=== PATIENT | male | born 1980 | race American Indian/Alaskan Native ===

== ENCOUNTER 2019-05-28 17:51 | Emergency (ER) | payer SELFPAY ==
[2019-05-28 22:27] VITALS: BP 103/70
[2019-05-28 23:01] LABS: Basophils % (Auto) 0.7 % (0.0-1.8); Hematocrit 46.6 % (35.5-45.6); Hemoglobin 15.7 gm/dl (11.8-15.2); Lymphocytes # (Auto) 0.6 K/mm3 (1.2-5.4); Mean Corpuscular HGB Conc 34 % (32-34); Mean Corpuscular Volume 88 fl (84-94); Monocytes # (Auto) 0.8 K/mm3 (0.0-0.8); Monocytes % (Auto) 14.1 % (0.0-7.3); Platelet Count 202 K/mm3 (140-440); Red Blood Count 5.29 M/mm3 (3.65-5.03); Red Cell Distribution Width 13.2 % (13.2-15.2)
[2019-05-28 23:25] LABS: Alanine Aminotransferase 20 units/L (7-56); Albumin 4.8 g/dL (3.9-5); BUN/Creatinine Ratio 8; Blood Urea Nitrogen 11 mg/dL (9-20); Calcium 9.7 mg/dL (8.4-10.2); Hemolysis Index 10
[2019-05-28] MEDS: chlorproMAZINE 25 MG in SODIUM CHLORIDE 0.9% 50 ML IV ONE (23:56)
[2019-05-28] MEDS: ALUM-MAG HYDROXIDE-SIMETHICONE 200-200-20MG/5ML ORAL LIQD 30 ML PO ONE (23:56)
[2019-05-28] MEDS: LIDOCAINE VISCOUS 2% 15 ML ORAL LIQD PO ONE (23:56)
[2019-05-28] MEDS: FAMOTIDINE 20 MG/2 ML INJ IV ONE (23:56)
--- NOTE | 2019-05-29 00:48 | XRay Report ---
CHEST 2 VIEWS, 05/29/2019 12:17 AM INDICATION: Cough COMPARISON: None FINDINGS: Support devices: None Heart: The heart appears normal in size. Lungs/pleura: The lungs are well expanded and appear clear of focal airspace disease or significant p leural effusion. Additional findings: Evaluation of bony structures demonstrates no acute abnormality. IMPRESSION: 1. No evidence of acute cardiopulmonary process. Signer Name: Jackie Torres MD Signed: 05/29/2019 12:43 AM Workstation Name: [email or web address]
--- NOTE | 2019-05-29 02:22 | Emergency Department Report ---
ED General Adult HPI - General Chief complaint: Nausea/Vomiting/Diarrhea Stated complaint: HICUPPS Source: patient Mode of arrival: Ambulatory Limitations: No Limitations - History of Present Illness Initial comments: Patient is a 39-year-old -[place] male with no past medical history presents to the ED with complaint of acute onset persistent intractable hiccups, nausea and vomiting and epigastric pain for 12 hours. Patient states that he Not Resolved about Persistent since Onset. Patient denies dizziness, chest pain, dyspnea, fever, chills, diarrhea, sore throat, cough, hematochezia, hematemesis, headache, MD Complaint: Hiccups; Nausea and vomiting -: Sudden, hour(s) (12) Location: chest, abdomen Radiation: non-radiation Severity scale (0 -10): 8 Quality: aching, sharp Consistency: constant Improves with: none Worsens with: none Associated Symptoms: denies other symptoms, loss of appetite, malaise, nausea /vomiting. denies: confusion, chest pain, cough, diaphoresis, fever/chills, headaches, rash, seizure, shortness of breath, syncope, weakness Treatments Prior to Arrival: none - Related Data Previous Rx's Medication Instructions Recorded Last Taken Type predniSONE [Deltasone] 50 mg PO QDAY #5 tab 01/10/16 Unknown Rx traMADoL [Ultram] 50 mg PO Q6HR PRN #15 tablet 01/10/16 Unknown Rx Famotidine [Pepcid] 20 mg PO Q12H #30 tablet 05/29/19 Unknown Rx Ondansetron [Zofran Odt] 4 mg PO Q6HR PRN #12 tab.rapdis 05/29/19 Unknown Rx Allergies Allergy/AdvReac Type Severity Reaction Status Date / Time No Known Allergies Allergy Unverified 08/21/15 17:37 ED Review of Systems ROS: Stated complaint: HICUPPS Other details as noted in HPI Constitutional: denies: chills, fever Eyes: denies: eye pain, eye discharge, vision change ENT: denies: ear pain, throat pain Respiratory: denies: cough, shortness of breath, wheezing Cardiovascular: denies: chest pain, palpitations Endocrine: no symptoms reported Gastrointestinal: abdominal pain (epigastric pain), nausea, vomiting, other (Hiccups). denies: diarrhea Genitourinary: denies: urgency, dysuria Musculoskeletal: denies: back pain, joint swelling, arthralgia Skin: denies: rash, lesions Neurological: denies: headache, weakness, paresthesias Psychiatric: denies: anxiety, depression Hematological/Lymphatic: denies: easy bleeding, easy bruising ED Past Medical Hx - Past Medical History Previous Medical History?: Yes Hx Hypertension: Yes Additional medical history: lumbar strain - Surgical History Past Surgical History?: Yes Additional Surgical History: facial surgery - Social History Smoking Status: Current Every Day Smoker Substance Use Type: Alcohol, Cocaine - Medications Home Medications: Home Medications Medication Instructions Recorded Confirmed Last Taken Type predniSONE [Deltasone] 50 mg PO QDAY #5 tab 01/10/16 Unknown Rx traMADoL [Ultram] 50 mg PO Q6HR PRN #15 tablet 01/10/16 Unknown Rx Famotidine [Pepcid] 20 mg PO Q12H #30 tablet 05/29/19 Unknown Rx Ondansetron [Zofran Odt] 4 mg PO Q6HR PRN #12 tab.rapdis 05/29/19 Unknown Rx ED Physical Exam - General Limitations: No Limitations General appearance: alert, in no apparent distress - Head Head exam: Present: atraumatic, normocephalic, normal inspection - Eye Eye exam: Present: normal appearance, PERRL, EOMI Pupils: Present: normal accommodation - ENT ENT exam: Present: normal exam, normal orophraynx, mucous membranes moist, TM's normal bilaterally, normal external ear exam - Neck Neck exam: Present: normal inspection, full ROM - Respiratory Respiratory exam: Present: normal lung sounds bilaterally. Absent: respiratory distress, wheezes, rales, rhonchi, chest wall tenderness - Cardiovascular Cardiovascular Exam: Present: normal rhythm, tachycardia, normal heart sounds. Absent: systolic murmur, diastolic murmur, rubs, gallop - GI/Abdominal GI/Abdominal exam: Present: soft, normal bowel sounds. Absent: tenderness, guarding, rebound, hyperactive bowel sounds, hypoactive bowel sounds, or ganomegaly - Extremities Exam Extremities exam: Present: normal inspection, full ROM, normal capillary refill - Back Exam Back exam: Present: normal inspection, full ROM. Absent: CVA tenderness (L), muscle spasm, paraspinal tenderness - Neurological Exam Neurological exam: Present: alert, oriented X3, CN II-XII intact, normal gait, reflexes normal - Psychiatric Psychiatric exam: Present: normal affect, normal mood - Skin Skin exam: Present: warm, dry, intact, normal color. Absent: rash ED Course Vital Signs 05/28/19 05/28/19 17:57 22:25 Temperature 100.3 F H 99.6 F Pulse Rate 111 H 91 H Respiratory 20 16 Rate Blood Pressure 103/70 Blood Pressure 114/71 [Right] O2 Sat by Pulse 98 96 Oximetry ED Medical Decision Making - Lab Data Result diagrams: 05/28/19 22:38 05/28/19 22:38 - Radiology Data Radiology results: report reviewed, image reviewed Chest x-ray shows no acute cardiopulmonary abnormalities or pneumonitis. - Medical Decision Making This is a 39-year-old male presented to the ED with persistent nausea, vomiting, epigastric pain and intractable hiccuping for the last 12 hours. In the ED, patient is alert and oriented 3 and is not in distress. Patient was treated in the ED for hiccups, nausea and vomiting, GERD in the ED. Lab results were reviewed and are all nonactionable. Chest x-ray shows no acute cardiopulmonary abnormalities or pneumonitis. On reevaluation, patient's symptoms resolved with medications. Patient was discharged home on medications and was advised to follow-up with his primary care physician in 5-7 days for reevaluation. - Differential Diagnosis Hiccups; GERD; Anxiety; Vomiting Critical care attestation.: If time is entered above; I have spent that time in minutes in the direct care of this critically ill patient, excluding procedure time. ED Disposition Clinical Impression: Intractable hiccups, Acute epigastric pain, Nausea and vomiting in adult GERD (gastroesophageal reflux disease) Qualifiers: Esophagitis presence: without esophagitis Qualified Code(s): K21.9 - Gastro- esophageal reflux disease without esophagitis Disposition: -01 TO HOME OR SELFCARE Is pt being admited?: No Does the pt Need Aspirin: No Condition: Stable Instructions: Hiccups (ED), Acute Nausea and Vomiting (ED), Gastroesophageal Reflux Disease (ED) Additional Instructions: Take medications with food, drink plenty of fluids and follow-up with primary care physician in 7-10 days for reevaluation. Return to the ED immediately if symptoms get worse. Prescriptions: Famotidine [Pepcid] 20 mg PO Q12H #30 tablet Ondansetron [Zofran Odt] 4 mg PO Q6HR PRN #12 tab.rapdis PRN Reason: Nausea Referrals: [facility] [Outside] - 7-10 days Time of Disposition: 02:17 Print Language: [email or web address]
== END 2019-05-29 02:21 | disposition home or self-care (01) ==
LOC: ED 17:51
DX: R06.6 Hiccough (principal); R10.13 Epigastric pain; R11.0 Nausea; K21.9 Gastro-esophageal reflux disease without esophagitis; I10 Essential (primary) hypertension; F17.200 Nicotine dependence, unspecified, uncomplicated; F14.10 Cocaine abuse, uncomplicated; Z98.890 Other specified postprocedural states; Z79.899 Other long term (current) drug therapy
CPT/HCPCS: 36415; 71046; 80053; 83690; 84484; 85025; 93005; 93010; 96365; 96375; 99284; J3230